=== PATIENT | female | born 1980 | race Caucasian/White ===

== ENCOUNTER 2018-06-07 06:31 | Emergency (ER) | payer SELFPAY ==
[2018-06-07] MEDS: LIDOCAINE/MYLANTA 40 ML BTL PO (09:26)
[2018-06-07] MEDS: FAMOTIDINE 20 MG TAB PO (09:26)
[2018-06-07 09:39] LABS: URINE BLOOD (Dip) POC 3+ (NEGATIVE); URINE GLUCOSE (Dip) POC Negative (NEGATIVE); URINE KETONES (Dip) POC Negative (NEGATIVE); URINE LEUKOCYTE EST (Dip) POC 1+ (NEGATIVE); URINE NITRITE (Dip) POC Negative (NEGATIVE); URINE TOTAL PROTEIN POC Trace (NEGATIVE)
[2018-06-07] MEDS: ONDANSETRON (ODT) 4 MG TAB ODT (10:35)
== END 2018-06-07 11:35 | disposition home or self-care (01) ==
LOC: FTE 06:31
DX: K21.9 Gastro-esophageal reflux disease without esophagitis (principal); N39.0 Urinary tract infection, site not specified
CPT/HCPCS: 81003; 81025; 99283

== ENCOUNTER 2018-06-17 01:20 | Inpatient (IN) | payer OTHER ==
[2018-06-17] MEDS ORDERED: ONDANSETRON 4 MG INJ IV (02:00)
[2018-06-17] MEDS ORDERED: NACL 0.9% 3 ML SYG IV (02:00)
[2018-06-17] MEDS: FAMOTIDINE 20 MG TAB PO ×2 (02:30→08:26)
[2018-06-17] MEDS: DEXAMETHASONE 10 MG/ML 1 ML INJ IV (02:57)
[2018-06-17 03:47] LABS: ADD MAN DIFF? NO; HAAIG REFLEX REFLEX FILED
[2018-06-17 04:05] LABS: BASOPHILS % 0.7 % (0.0-2.0); EOSINOPHILS # 0.2 10^3/ul (0.0-0.5); HEMATOCRIT 37.5 % (37.0-47.0); HEMOGLOBIN 12.5 g/dl (12.0-16.0); LYMPHOCYTES # 1.4 10^3/ul (0.8-2.9); LYMPHOCYTES % 26.1 % (15.0-51.0); MEAN CORPUSCULAR HEMOGLOBIN 31.7 pg (29.0-33.0); MEAN CORPUSCULAR HGB CONC 33.3 g/dl (32.0-37.0); MEAN CORPUSCULAR VOLUME 95.2 fl (82.0-101.0); MEAN PLATELET VOLUME 11.5 fl (7.4-10.4); MONOCYTE # 0.5 10^3/ul (0.3-0.9); MONOCYTES % 9.6 % (0.0-11.0); NEUTROPHIL # 3.3 10^3/ul (1.6-7.5); NEUTROPHILS % 60.2 % (39.0-77.0); PLATELET COUNT 111 10^3/UL (140-415); RED BLOOD COUNT 3.94 10^6/ul (4.20-5.40); RED CELL DISTRIBUTION WIDTH 11.9 % (11.5-14.5)
[2018-06-17 04:05] LABS: WHITE BLOOD COUNT 5.4 10^3/ul (4.8-10.8)
[2018-06-17 04:07] LABS: HEMOGLOBIN A1C 5.2 % (0-5.9)
[2018-06-17 04:16] LABS: ALANINE AMINOTRANSFERASE 837 IU/L (13-69); ALBUMIN 4.4 g/dl (3.3-4.9); ALBUMIN/GLOBULIN RATIO 1.25; ALKALINE PHOSPHATASE 196 IU/L (42-121); ANION GAP 13 (5-13); ASPARTATE AMINO TRANSFERASE 505 IU/L (15-46); BILIRUBIN,INDIRECT 0.6 mg/dl (0-1.1); BILIRUBIN,TOTAL 0.6 mg/dl (0.2-1.3); BLOOD UREA NITROGEN 10 mg/dl (7-20); CALCIUM 10.4 mg/dl (8.4-10.2); CARBON DIOXIDE 24 mmol/L (21-31); CHLORIDE 106 mmol/L (97-110); CREATININE 0.61 mg/dl (0.44-1.00); Estimated GFR > 60 mL/min (>60); GLUCOSE 156 mg/dl (70-220); MAGNESIUM 2.2 mg/dl (1.7-2.5); PHOSPHORUS 3.5 mg/dl (2.5-4.9); SODIUM 143 mmol/L (135-144); TOTAL PROTEIN 7.9 g/dl (6.1-8.1)
[2018-06-17 04:45] LABS: HEPATITIS B SURFACE ANTIGEN NEGATIVE (NEGATIVE)
[2018-06-17 05:03] LABS: HEPATITIS C VIRAL ANTIBODY NEGATIVE (NEGATIVE)
[2018-06-17 05:04] LABS: HEPATITIS B SURFACE ANTIBODY NEGATIVE (NEGATIVE)
[2018-06-17 05:04] LABS: HEPATITIS B CORE ANTIBODY NEGATIVE (NEGATIVE)
[2018-06-17] MEDS ORDERED: PROPOFOL 200 MG INJ (07:00)
[2018-06-17] MEDS: AL HYDROX/MG HYDROX/SIMETH 30 ML CUP PO (11:08)
[2018-06-17] MEDS: PANTOPRAZOLE 40 MG INJ IV (13:44)
[2018-06-17] MEDS: morphine 2 MG INJ IV (13:45)
[2018-06-17] MEDS: SOD CHLORIDE 0.45% 1,000 ML IV (15:24)
[2018-06-17] MEDS: METOCLOPRAMIDE 10 MG INJ IV ×2 (15:24→18:55)
[2018-06-17] MEDS: LIDOCAINE/MYLANTA 40 ML BTL PO (15:24)
[2018-06-17] MEDS: SUCRALFATE (100 MG/ML) 10ML CUP GTB ×3 (15:24→21:03)
[2018-06-17 17:09] LABS: AMYLASE 68 U/L (11-123)
[2018-06-17 17:18] LABS: LIPASE 160 U/L (23-300)
[2018-06-17] MEDS: PANTOPRAZOLE (EC) 40 MG TAB PO (18:55)
[2018-06-17] MEDS: LIDOCAINE 2% (SDV) 5 ML INJ (19:00)
[2018-06-17] MEDS: PROPOFOL 20 ML (19:00)
[2018-06-18] MEDS: morphine 2 MG INJ IV (00:32)
[2018-06-18] MEDS: METOCLOPRAMIDE 10 MG INJ IV ×5 (00:32→23:43)
[2018-06-18] MEDS: SOD CHLORIDE 0.45% 1,000 ML IV ×5 (02:25→19:04)
[2018-06-18 04:40] LABS: ADD MAN DIFF? NO
[2018-06-18 04:43] LABS: BASOPHILS % 0.6 % (0.0-2.0); EOSINOPHILS # 0.1 10^3/ul (0.0-0.5); EOSINOPHILS % 0.7 % (0.0-7.0); HEMATOCRIT 35.1 % (37.0-47.0); HEMOGLOBIN 11.7 g/dl (12.0-16.0); LYMPHOCYTES # 1.9 10^3/ul (0.8-2.9); LYMPHOCYTES % 26.4 % (15.0-51.0); MEAN CORPUSCULAR HEMOGLOBIN 31.3 pg (29.0-33.0); MEAN CORPUSCULAR HGB CONC 33.3 g/dl (32.0-37.0); MEAN CORPUSCULAR VOLUME 93.9 fl (82.0-101.0); MEAN PLATELET VOLUME 11.7 fl (7.4-10.4); MONOCYTE # 0.6 10^3/ul (0.3-0.9); MONOCYTES % 8.4 % (0.0-11.0); NEUTROPHIL # 4.6 10^3/ul (1.6-7.5); NEUTROPHILS % 63.2 % (39.0-77.0); PLATELET COUNT 117 10^3/UL (140-415); RED BLOOD COUNT 3.74 10^6/ul (4.20-5.40); RED CELL DISTRIBUTION WIDTH 11.9 % (11.5-14.5)
[2018-06-18 04:43] LABS: WHITE BLOOD COUNT 7.3 10^3/ul (4.8-10.8)
[2018-06-18 05:00] LABS: ANION GAP 9 (5-13); BLOOD UREA NITROGEN 10 mg/dl (7-20); CALCIUM 10.1 mg/dl (8.4-10.2); CARBON DIOXIDE 26 mmol/L (21-31); CHLORIDE 104 mmol/L (97-110); CHOL/HDL RATIO 3.1 RATIO; CREATININE 0.65 mg/dl (0.44-1.00); Estimated GFR > 60 mL/min (>60); GLUCOSE 134 mg/dl (70-220); HDL CHOLESTEROL 48 mg/dl (34-82); LDL CHOLESTEROL,CALCULATED 81 mg/dl; MAGNESIUM 2.2 mg/dl (1.7-2.5); PHOSPHORUS 3.3 mg/dl (2.5-4.9); POTASSIUM 3.8 mmol/L (3.5-5.1); SODIUM 139 mmol/L (135-144); TRIGLYCERIDES 105 mg/dl (0-149)
[2018-06-18 05:00] LABS: CHOLESTEROL 150 mg/dl (100-200)
[2018-06-18] MEDS: PANTOPRAZOLE (EC) 40 MG TAB PO ×2 (06:08→17:18)
[2018-06-18] MEDS: SUCRALFATE (100 MG/ML) 10ML CUP GTB ×4 (08:46→20:33)
[2018-06-18 11:41] LABS: SMOOTH MUSCLE AB SCREEN NEGATIVE (NEGATIVE)
[2018-06-18 14:51] LABS: ANA SCREEN NEGATIVE (NEGATIVE)
[2018-06-18] MEDS: LIDOCAINE/MYLANTA 4 ML (PO SYG) PO (17:52)
[2018-06-19] MEDS: SOD CHLORIDE 0.45% 1,000 ML IV ×2 (03:26→13:40)
[2018-06-19] MEDS: PANTOPRAZOLE (EC) 40 MG TAB PO (05:52)
[2018-06-19] MEDS: METOCLOPRAMIDE 10 MG INJ IV ×2 (05:52→12:22)
[2018-06-19 06:09] LABS: ALANINE AMINOTRANSFERASE 653 IU/L (13-69); ALBUMIN 3.9 g/dl (3.3-4.9); ALBUMIN/GLOBULIN RATIO 1.14; ALKALINE PHOSPHATASE 200 IU/L (42-121); ANION GAP 10 (5-13); ASPARTATE AMINO TRANSFERASE 189 IU/L (15-46); BILIRUBIN,INDIRECT 0.4 mg/dl (0-1.1); BILIRUBIN,TOTAL 0.4 mg/dl (0.2-1.3); BLOOD UREA NITROGEN 10 mg/dl (7-20); CALCIUM 9.8 mg/dl (8.4-10.2); CARBON DIOXIDE 23 mmol/L (21-31); CHLORIDE 106 mmol/L (97-110); CREATININE 0.65 mg/dl (0.44-1.00); Estimated GFR > 60 mL/min (>60); GLUCOSE 105 mg/dl (70-220); POTASSIUM 4.1 mmol/L (3.5-5.1); SODIUM 139 mmol/L (135-144); TOTAL PROTEIN 7.3 g/dl (6.1-8.1)
[2018-06-19] MEDS: SUCRALFATE (100 MG/ML) 10ML CUP GTB ×2 (08:34→12:22)
[2018-06-21 12:03] LABS: MITOCHONDRIAL TB NEGATIVE (NEGATIVE)
== END 2018-06-19 13:53 | disposition home or self-care (01) | DRG 392 ==
LOC: PP2 01:20
PROVIDERS: Internal Medicine
PROC: 0DB68ZX Excision of Stomach, Via Natural or Artificial Opening Endoscopic, Diagnostic (ICD-10-PCS; principal; 2018-06-17 17:00)
PROC: 0DB98ZX Excision of Duodenum, Via Natural or Artificial Opening Endoscopic, Diagnostic (ICD-10-PCS; 2018-06-17 17:00)
DX: K29.00 Acute gastritis without bleeding (principal); K21.9 Gastro-esophageal reflux disease without esophagitis; E66.9 Obesity, unspecified; R74.0 Nonspecific elevation of levels of transaminase and lactic acid dehydrogenase [LDH]; Z90.49 Acquired absence of other specified parts of digestive tract; Z68.34 Body mass index [BMI] 34.0-34.9, adult
CPT/HCPCS: 76705; 80048; 80053; 80061; 82150; 83036; 83690; 83735; 84100; 84443; 84702; 84703; 85025; 86038; 86255; 86704; 86706; 86709; 86803; 87340; 88305; 88312

== ENCOUNTER 2018-07-01 10:22 | Emergency (ER) | payer OTHER ==
[2018-07-01 12:19] LABS: ADD MAN DIFF? NO
[2018-07-01] MEDS: traMADol 50 MG TAB PO (12:21)
[2018-07-01] MEDS: FAMOTIDINE 20 MG TAB PO (12:21)
[2018-07-01] MEDS: LIDOCAINE/MYLANTA 40 ML BTL PO (12:22)
[2018-07-01 12:32] LABS: WHITE BLOOD COUNT 5.5 10^3/ul (4.8-10.8)
[2018-07-01 12:32] LABS: BASOPHILS % 0.7 % (0.0-2.0); EOSINOPHILS # 0.1 10^3/ul (0.0-0.5); HEMATOCRIT 38.1 % (37.0-47.0); HEMOGLOBIN 12.6 g/dl (12.0-16.0); LYMPHOCYTES # 1.5 10^3/ul (0.8-2.9); LYMPHOCYTES % 26.5 % (15.0-51.0); MEAN CORPUSCULAR HEMOGLOBIN 32.1 pg (29.0-33.0); MEAN CORPUSCULAR HGB CONC 33.1 g/dl (32.0-37.0); MEAN CORPUSCULAR VOLUME 97.2 fl (82.0-101.0); MEAN PLATELET VOLUME 12.3 fl (7.4-10.4); MONOCYTE # 0.4 10^3/ul (0.3-0.9); MONOCYTES % 6.9 % (0.0-11.0); NEUTROPHIL # 3.5 10^3/ul (1.6-7.5); NEUTROPHILS % 63.2 % (39.0-77.0); PLATELET COUNT 124 10^3/UL (140-415); RED BLOOD COUNT 3.92 10^6/ul (4.20-5.40); RED CELL DISTRIBUTION WIDTH 12.9 % (11.5-14.5)
[2018-07-01 12:33] LABS: ADD UMIC YES; UR ASCORBIC ACID NEGATIVE (NEGATIVE); UR BACTERIA FEW /HPF (NONE SEEN); UR BILIRUBIN (Dip) NEGATIVE (NEGATIVE); UR BLOOD (Dip) NEGATIVE (NEGATIVE); UR CLARITY CLOUDY (CLEAR); UR COLOR YELLOW (YELLOW); UR GLUCOSE (Dip) NEGATIVE (NEGATIVE); UR KETONES (Dip) NEGATIVE (NEGATIVE); UR LEUKOCYTE ESTERASE (Dip) 2+ Leu/ul (NEGATIVE); UR MUCUS FEW /HPF (NONE SEEN); UR NITRITE (Dip) NEGATIVE (NEGATIVE); UR RBC 6 /HPF (0-5); UR SPECIFIC GRAVITY (Dip) 1.018 (1.003-1.030); UR SQUAMOUS EPITHELIAL CELL MODERATE /HPF (FEW); UR TOTAL PROTEIN (Dip) NEGATIVE (NEGATIVE); UR UROBILINOGEN (Dip) 1+ mg/dL (NEGATIVE); UR WBC 5 /HPF (0-5)
[2018-07-01 12:55] LABS: ALANINE AMINOTRANSFERASE 998 IU/L (13-69); ALBUMIN 4.7 g/dl (3.3-4.9); ALBUMIN/GLOBULIN RATIO 1.23; ALKALINE PHOSPHATASE 320 IU/L (42-121); ANION GAP 8 (5-13); ASPARTATE AMINO TRANSFERASE 463 IU/L (15-46); BILIRUBIN,INDIRECT 0.7 mg/dl (0-1.1); BILIRUBIN,TOTAL 0.7 mg/dl (0.2-1.3); BLOOD UREA NITROGEN 12 mg/dl (7-20); CALCIUM 11.1 mg/dl (8.4-10.2); CARBON DIOXIDE 25 mmol/L (21-31); CHLORIDE 109 mmol/L (97-110); Estimated GFR > 60 mL/min (>60); GLUCOSE 119 mg/dl (70-220); LIPASE 172 U/L (23-300); SODIUM 142 mmol/L (135-144)
[2018-07-01 12:59] LABS: TOTAL PROTEIN 8.5 g/dl (6.1-8.1)
== END 2018-07-01 14:54 | disposition home or self-care (01) ==
LOC: FTE 14:54
DX: R10.13 Epigastric pain (principal); R94.5 Abnormal results of liver function studies
CPT/HCPCS: 36415; 74176; 80053; 81001; 81025; 83690; 85025; 99284-25

== ENCOUNTER 2018-07-27 22:50 | Emergency (ER) | payer OTHER ==
[2018-07-28 00:31] LABS: ADD MAN DIFF? NO
[2018-07-28] MEDS: morphine 4 MG/ML VIAL IV (00:34)
[2018-07-28] MEDS: SOD CHLORIDE 0.9% 1,000 ML IV (00:34)
[2018-07-28] MEDS: ONDANSETRON 4 MG INJ IV ×2 (00:34→03:05)
[2018-07-28 00:43] LABS: ABNORMAL IP MESSAGE 1; BASOPHILS % 0.4 % (0.0-2.0); EOSINOPHILS % 0.2 % (0.0-7.0); HEMATOCRIT 36.2 % (37.0-47.0); HEMOGLOBIN 12.1 g/dl (12.0-16.0); LYMPHOCYTES # 0.8 10^3/ul (0.8-2.9); LYMPHOCYTES % 14.5 % (15.0-51.0); MEAN CORPUSCULAR HEMOGLOBIN 31.8 pg (29.0-33.0); MEAN CORPUSCULAR HGB CONC 33.4 g/dl (32.0-37.0); MEAN CORPUSCULAR VOLUME 95.3 fl (82.0-101.0); MEAN PLATELET VOLUME 12.8 fl (7.4-10.4); MONOCYTE # 0.3 10^3/ul (0.3-0.9); MONOCYTES % 6.3 % (0.0-11.0); NEUTROPHIL # 4.1 10^3/ul (1.6-7.5); NEUTROPHILS % 78.2 % (39.0-77.0); PLATELET COUNT 89 10^3/UL (140-415); RED CELL DISTRIBUTION WIDTH 12.5 % (11.5-14.5)
[2018-07-28 00:43] LABS: WHITE BLOOD COUNT 5.2 10^3/ul (4.8-10.8)
[2018-07-28 00:48] LABS: ADD UMIC YES; UR ASCORBIC ACID NEGATIVE (NEGATIVE); UR BACTERIA FEW /HPF (NONE SEEN); UR BILIRUBIN (Dip) NEGATIVE (NEGATIVE); UR BLOOD (Dip) NEGATIVE (NEGATIVE); UR CLARITY CLOUDY (CLEAR); UR COLOR AMBER (YELLOW); UR GLUCOSE (Dip) NEGATIVE (NEGATIVE); UR KETONES (Dip) 1+ mg/dL (NEGATIVE); UR LEUKOCYTE ESTERASE (Dip) 3+ Leu/ul (NEGATIVE); UR MUCUS MANY /HPF (NONE SEEN); UR NITRITE (Dip) NEGATIVE (NEGATIVE); UR RBC 4 /HPF (0-5); UR SPECIFIC GRAVITY (Dip) 1.021 (1.003-1.030); UR SQUAMOUS EPITHELIAL CELL MODERATE /HPF (FEW); UR TOTAL PROTEIN (Dip) 1+ mg/dl (NEGATIVE); UR UROBILINOGEN (Dip) 2+ mg/dL (NEGATIVE); UR WBC 19 /HPF (0-5)
[2018-07-28 01:00] LABS: ALANINE AMINOTRANSFERASE 541 IU/L (13-69); ALBUMIN 4.3 g/dl (3.3-4.9); ALBUMIN/GLOBULIN RATIO 1.34; ALKALINE PHOSPHATASE 257 IU/L (42-121); ANION GAP 10 (5-13); ASPARTATE AMINO TRANSFERASE 346 IU/L (15-46); BILIRUBIN,INDIRECT 0.4 mg/dl (0-1.1); BILIRUBIN,TOTAL 0.7 mg/dl (0.2-1.3); BLOOD UREA NITROGEN 12 mg/dl (7-20); CALCIUM 10.8 mg/dl (8.4-10.2); CARBON DIOXIDE 26 mmol/L (21-31); CHLORIDE 106 mmol/L (97-110); CREATININE 0.62 mg/dl (0.44-1.00); Estimated GFR > 60 mL/min (>60); GLUCOSE 131 mg/dl (70-220); LIPASE 172 U/L (23-300); POTASSIUM 4.1 mmol/L (3.5-5.1); SODIUM 142 mmol/L (135-144); TOTAL PROTEIN 7.5 g/dl (6.1-8.1)
[2018-07-28 01:02] LABS: POSITIVE DIFF @See below
[2018-07-28 01:10] LABS: TROPONIN-I < 0.012 ng/ml (0.000-0.120)
[2018-07-28] MEDS: CEFTRIAXONE 1 GM/50 ML (PMX) 50 ML IVPB (02:39)
[2018-07-28] MEDS: HYDROmorphONE 1 MG/ML SYG IV (03:05)
== END 2018-07-28 06:43 | disposition home or self-care (01) ==
LOC: E/R 22:50
DX: R10.13 Epigastric pain (principal); R11.10 Vomiting, unspecified
CPT/HCPCS: 36415; 71045; 80053; 81001; 81025; 83690; 84484; 85025; 93005; 96361; 96365; 96375; 96376; 99285-25

== ENCOUNTER 2018-09-27 08:56 | Day surgery (SDC) | payer OTHER ==
[2018-09-27] MEDS ORDERED: SOD CHLORIDE 0.9% 1,000 ML IV (09:57)
[2018-09-27] MEDS: SOD CHLORIDE 0.9% 1,000 ML IV (10:15)
[2018-09-27] MEDS: FENTAnyl 50 MCG/ML VIAL (13:05)
[2018-09-27] MEDS: LIDOCAINE 1% (MPF) 5 ML VIAL (13:07)
[2018-09-27] MEDS: ONDANSETRON 4 MG INJ (14:09)
== END 2018-09-27 15:35 | disposition home or self-care (01) ==
LOC: SDS 08:56
DX: K76.0 Fatty (change of) liver, not elsewhere classified (principal)
CPT/HCPCS: 47000; 77012; 88307; 88313

== ENCOUNTER 2018-10-12 19:42 | Emergency (ER) | payer OTHER ==
[2018-10-12] MEDS: ACETAMINOPHEN 325 MG TAB PO (22:21)
[2018-10-12 22:32] LABS: ADD MAN DIFF? NO
[2018-10-12 22:35] LABS: WHITE BLOOD COUNT 8.3 10^3/ul (4.8-10.8)
[2018-10-12 22:35] LABS: BASOPHILS % 0.5 % (0.0-2.0); EOSINOPHILS # 0.2 10^3/ul (0.0-0.5); EOSINOPHILS % 1.9 % (0.0-7.0); HEMATOCRIT 39.4 % (37.0-47.0); HEMOGLOBIN 13.1 g/dl (12.0-16.0); LYMPHOCYTES # 2.4 10^3/ul (0.8-2.9); LYMPHOCYTES % 29.2 % (15.0-51.0); MEAN CORPUSCULAR HGB CONC 33.2 g/dl (32.0-37.0); MEAN CORPUSCULAR VOLUME 96.1 fl (82.0-101.0); MEAN PLATELET VOLUME 11.4 fl (7.4-10.4); MONOCYTE # 0.6 10^3/ul (0.3-0.9); MONOCYTES % 7.3 % (0.0-11.0); NEUTROPHILS % 60.7 % (39.0-77.0); PLATELET COUNT 125 10^3/UL (140-415); RED CELL DISTRIBUTION WIDTH 12.5 % (11.5-14.5)
[2018-10-12 22:44] LABS: ADD UMIC YES; UR AMORPHOUS CRYSTAL MODERATE /HPF (NONE SEEN); UR ASCORBIC ACID NEGATIVE (NEGATIVE); UR BACTERIA FEW /HPF (NONE SEEN); UR BILIRUBIN (Dip) NEGATIVE (NEGATIVE); UR BLOOD (Dip) 3+ mg/dL (NEGATIVE); UR CLARITY CLOUDY (CLEAR); UR COLOR YELLOW (YELLOW); UR GLUCOSE (Dip) NEGATIVE (NEGATIVE); UR KETONES (Dip) NEGATIVE (NEGATIVE); UR LEUKOCYTE ESTERASE (Dip) NEGATIVE Leu/ul (NEGATIVE); UR NITRITE (Dip) NEGATIVE (NEGATIVE); UR RBC 11 /HPF (0-5); UR SPECIFIC GRAVITY (Dip) 1.021 (1.003-1.030); UR SQUAMOUS EPITHELIAL CELL FEW /HPF (FEW); UR TOTAL PROTEIN (Dip) NEGATIVE (NEGATIVE); UR UROBILINOGEN (Dip) NEGATIVE (NEGATIVE); UR WBC 5 /HPF (0-5)
[2018-10-12 22:51] LABS: ANION GAP 9 (5-13); BLOOD UREA NITROGEN 14 mg/dl (7-20); CALCIUM 10.5 mg/dl (8.4-10.2); CARBON DIOXIDE 26 mmol/L (21-31); CHLORIDE 105 mmol/L (97-110); Estimated GFR > 60 mL/min (>60); GLUCOSE 108 mg/dl (70-220); POTASSIUM 3.9 mmol/L (3.5-5.1); SODIUM 140 mmol/L (135-144)
== END 2018-10-12 23:26 | disposition home or self-care (01) ==
LOC: FTE 19:42
DX: N83.202 Unspecified ovarian cyst, left side (principal); N93.9 Abnormal uterine and vaginal bleeding, unspecified
CPT/HCPCS: 36415; 76830; 76856; 80048; 81001; 81025; 85025; 99284-25